=== PATIENT | female | born 2000 | race Caucasian/White ===

== ENCOUNTER 2023-05-08 10:00 | Outpatient (OUT) | payer OTHER, SELFPAY ==
--- NOTE | 2023-05-08 10:03 | US_ITS ---
[address] [address] Patient Name: ISAI KELLEY MRN: [id number] date: 2000 Sex: F Assigned Patient Location: US Current Patient Location: US Accession/Order Number: [id number] Exam Date: 05/08/2023 10:03 Report Date: 05/08/2023 11:58 At the request of: JAZMIN DOMINGUEZ Procedure: US OB transvaginal EXAMINATION: US OB transvaginal HISTORY: MISSED MENSES COMPARISON: No relevant comparison available. FINDINGS: G[place]mez intrauterine gestation Gestational sac: 4.0 cm, 9 weeks 2 days CRL: 1.73 cm, 8 weeks 1 day Yolk sac: 4.6 mm Heart rate: 170 beats minute Cervix: Closed, 3.5 cm The uterus is normal, retroverted, retroflexed The ovaries are normal. Right corpus luteal cyst Clinical age: 8 weeks 3 days Clinical ARRON: 12/15/2023 Ultrasound age: 8 weeks 1 day Ultrasound ARRON: 12/17/2023 US/US OB transvaginal IMPRESSION: G[place] intrauterine gestation measuring 8 weeks 1 day Electronically authenticated by: JAKE SANTIZO Date: 05/08/2023 11:58
== END 2023-05-08 10:01 | disposition home or self-care (01) ==
LOC: US 10:01
PROVIDERS: Visit Provider Obstetrics & Gynecology
DX: Z34.91 Encounter for supervision of normal pregnancy, unspecified, first trimester (principal); Z3A.08 8 weeks gestation of pregnancy; N92.6 Irregular menstruation, unspecified
CPT/HCPCS: 76817

== ENCOUNTER 2023-05-15 10:15 | Outpatient (OUT) | payer OTHER, SELFPAY ==
--- OUTSIDE RECORDS SUMMARY | 2023-05-15 10:22 | XMS_ITS | CCD ---
Author Name Unknown Address [address] [place] [address] Organization [facility] Care Team Providers Care Hand Molder And Caster Name Role Phone Rolando Knight Unavailable DO Rolando Knight Primary Care Provider MD José Miguel Espinal Attending Provider [phone] TEZ, AHMAD F Primary Care Physician Rolando Knight Admitting Unavailable Rolando Knight Attending Unavailable Rolando Knight Primary Care Unavailable Tez, Ahmad Admitting Unavailable Tez, Ahmad Attending Unavailable Rolando Knight Primary Care Unavailable DO Rolando Knight Primary Care Provider DO Rolando Knight Attending Provider [phone] TEZ, AHMAD F Admitting Unavailable TEZ, AHMAD F Attending Unavailable TEZ, AHMAD F Referring Unavailable Tere DUNN Attending Unavailable Maninder Wagner Attending Unavailable TEZ, AHMAD F Admitting Unavailable TEZ, AHMAD F Attending Unavailable TEZ, AHMAD F Referring Unavailable Allergies Allergy Classification Reported Allergen(s) Allergy Type Date of Onset Reaction(s) Facility (16 sources) Escitalopram Drug Allergy drowsiness [facility] neoSaej Other (16 sources) wheat, soy, dairy Propensity to adverse reactions migraines seedtag Other (1 source) Unable to obtain; Translations: [Unable to obtain] Propensity to adverse reactions (disorder) [facility] Medications Current Medications Medication Drug Class(es) Dates Sig (Normalized) Sig (Original) 24 hr buPROPion hydrochloride 300 mg extended release oral tablet (3 sources) Aminoketone Start: 12-18-2020 take 1 tablet by mouth every twenty-four hours buPROPion HCl ER (XL) 300 MG 1 tablet in the morning Orally Once a day for 30 days Dec, Active Gildagia 0.4-35 MG-MCG (11 sources) take 1 tablet by mouth once daily Gildagia 0.4-35 MG-MCG 1 tablet Orally Once a day control Active Hydrocortisone (3 sources) Corticosteroid Start: 05-28-2018 Hydrocortisone Acetate 2.5 % 1 application to affected area Externally Twice a day prn May, Active omeprazole 20 mg delayed release oral capsule (3 sources) Proton Pump Inhibitor Start: 03-08-2020 take 1 capsule by mouth once daily Omeprazole 20 MG 1 capsule 30 minutes before morning meal Orally Once a day prn Mar, Active venlafaxine 75 mg oral tablet (15 sources) Serotonin and Norepinephrine Reuptake Inhibitor Start: 03-04-2021 Venlafaxine HCl 75 MG 1.5 Orally Once a day for 90 days Mar, Active Start: 03-04-2021 take 1 tablet by karol th every twenty-four hours Venlafaxine HCl 75 MG 1 tablet with food Orally Once a day for 90 days Mar, Active Start: 03-04-2021 take 2 tablets by mo uth every twenty-four hours Venlafaxine HCl 37.5 MG 2 tablet with food Orally Once a day for 90 days Mar, Active Start: 03-04-2021 take 1 tablet by karol th every twenty-four hours Venlafaxine HCl 37.5 MG 1 tablet with food Orally Once a day Mar, Active Problems Active Problems Problem Classification Problem Date Documented Da te Episodic/Chronic Anxiety disorders (20 sources) Anxiety; Translations: [Anxiety disorder, unspecified] Onset: 01-29-2021 Resolved: 09-19-2021 Chronic Deficiency and other anemia (16 sources) Iron deficiency anemia; Translations: [Iron deficiency anemia, unspecified] Episodic Other upper respiratory disease (3 sources) Seasonal allergic rhinitis; Translations: [Other seasonal allergic rhinitis] Chronic Other upper respiratory infections (3 sources) Sinusitis; Translations: [Chronic sinusitis, unspecified] Chronic Thyroid disorders (20 sources) Goiter; 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 Unclassified (1 source) Encounter for general adult medical examination without abnormal findings; Translations: [Encounter for general adult medical examination without abnormal findings] Onset: 03-19-2023 Unclassified (1 source) Nontoxic goiter, unspecified; Translations: [Nontoxic goiter, unspecified] Onset: 12-04-2022 Past or Other Problems Problem Classification Problem Date Documented Da te Episodic/Chronic Abdominal pain (3 sources) Abdominal pain; Translations: [Unspecified abdominal pain] Episodic Allergic reactions (3 sources) Inflammatory dermatosis; Translations: [Dermatitis, unspecified] Episodic Nausea and vomiting (3 sources) Nausea and vomiting; Translations: [Nausea with vomiting, unspecified] Episodic Other gastrointestinal disorders (3 sources) Diarrhea; Translations: [Diarrhea, unspecified] Episodic Results Test Name Value Interpretation Reference Range Facility Alanine aminotransferase [En zymatic activity/volume] in Serum or PlasmaOrdered By: Rolando Knight on 03-19-2023 ALT [Catalytic activity/Vol] 24 U/L 7-52 [facility] Albumin [Mass/volume] in Ser um or Plasma by Bromocresol green (BCG) dye binding methoOrdered By: Rolando Knight on 03-19-2023 Albumin BCG dye [Mass/Vol] 4.8 g/dL 3.5-5.7 [facility] Alkaline phosphatase [Enzyma tic activity/volume] in Serum or PlasmaOrdered By: Rolando Knight on 03-19-2023 ALP [Catalytic activity/Vol] 88 U/L 34-104 [facility] Aspartate aminotransferase [ Enzymatic activity/volume] in Serum or PlasmaOrdered By: Rolando Knight on 03-19-2023 AST [Catalytic activity/Vol] 25 U/L 13-39 [facility] Basophils Auto (Bld) [#/Vol] Ordered By: Rolando Knight on 03-19-2023 Basophils (Bld) [#/Vol] 0.1 10*3/uL 0.0-0.2 [facility] Basophils/100 WBC Auto (Bld) Ordered By: Rolando Knight on 03-19-2023 Basophils/100 WBC (Bld) 0.8 % . [facility] Bilirubin.total [Mass/volume ] in Serum or PlasmaOrdered By: Rolando Knight on 03-19-2023 Bilirubin [Mass/Vol] 1.0 mg/dL 0.3-1.0 [facility] Calcium [Mass/volume] in Ser um or PlasmaOrdered By: Rolando Knight on 03-19-2023 Calcium [Mass/Vol] 9.7 mg/dL 8.6-10.3 [facility] Carbon dioxide, total [Moles /volume] in Serum or PlasmaOrdered By: Rolando Knight on 03-19-2023 CO2 [Moles/Vol] 29.0 mmol/L 21.0-31.0 [facility] Chloride [Moles/volume] in S krystal or PlasmaOrdered By: Rolando Knight on 03-19-2023 Chloride [Moles/Vol] 102 mmol/L 98-107 [facility] Cholesterol [Mass/volume] in Serum or PlasmaOrdered By: Rolando Knight on 03-19-2023 Cholesterol [Mass/Vol] 209 mg/dL 140-200 [facility] Comment on above: Chol less than 200 m g/dl low riskChol 201-239 mg/dl borderline riskChol 240 mg/dl and greater high risk Cholesterol in LDL Calc [Mas s/Vol]Ordered By: Rolando Knight on 03-19-2023 Cholesterol in LDL [Mass/Vol] 106 mg/dL 0-100 [facility] Comment on above: LDL ATP III CLASSIFI CATIONLDL less than 100 mg/dL OptimalLDL 100-129 mg/dL Near or above optimalLDL 130-159 mg/dL Borderline highLDL 160-189 mg/dL HighLDL greater than 189 mg/dL Very high Cholesterol in VLDL Calc [Ma ss/Vol]Ordered By: Rolando Knight on 03-19-2023 Cholesterol in VLDL [Mass/Vol] 15 mg/dL [facility] Complete Blood Count Auto Di ffon 03-19-2023 Basophils (Bld) [#/Vol] 0.1 10*3/uL Normal 0.0-0.2 [facility] Comment on above: Order Comment: Reaso n for Exam Wellness examination Result Comment: PERF ORMED BY: [place] [address] PATHOLOGIST KILN PLACER MAGALIS JUAN M.D. Performed By: #### C BC, LIPID, CMP, TSH3 #### [address] Basophils/100 WBC (Bld) 0.8 % Normal . [facility] Comment on above: Order Comment: Reaso n for Exam Wellness examination Performed By: #### C BC, LIPID, CMP, TSH3 #### [address] Eosinophils (Bld) [#/Vol] 0.2 10*3/uL Normal 0.0-0.45 [facility] Comment on above: Order Comment: Reaso n for Exam Wellness examination Performed By: #### C BC, LIPID, CMP, TSH3 #### [address] Eosinophils/100 WBC (Bld) 2.2 % Normal . [facility] Comment on above: Order Comment: Reaso n for Exam Wellness examination Performed By: #### C BC, LIPID, CMP, TSH3 #### [address] Erythrocyte distribution width (RBC) [Ratio] 12.6 % Normal 11.9-15.3 [facility] Comment on above: Order Comment: Reaso n for Exam Wellness examination Performed By: #### C BC, LIPID, CMP, TSH3 #### [address] Hematocrit (Bld) [Volume fraction] 39.8 % Normal 34.0-46.4 [facility] Comment on above: Order Comment: Reaso n for Exam Wellness examination Performed By: #### C BC, LIPID, CMP, TSH3 #### [address] Hemoglobin (Bld) [Mass/Vol] 13.3 g/dL Normal 11.8-15.4 [facility] Comment on above: Order Comment: Reaso n for Exam Wellness examination Performed By: #### C BC, LIPID, CMP, TSH3 #### [address] Lymphocytes (Bld) [#/Vol] 2.2 10*3/uL Normal 1.00-4.8 [facility] Comment on above: Order Comment: Reaso n for Exam Wellness examination Performed By: #### C BC, LIPID, CMP, TSH3 #### [address] Lymphocytes/100 WBC (Bld) 31.1 % Normal . [facility] Comment on above: Order Comment: Reaso n for Exam Wellness examination Performed By: #### C BC, LIPID, CMP, TSH3 #### [address] MCH (RBC) [Entitic mass] 33.3 pg Normal 24.7-34.3 [facility] Comment on above: Order Comment: Reaso n for Exam Wellness examination Performed By: #### C BC, LIPID, CMP, TSH3 #### [address] MCV (RBC) [Entitic vol] 99.5 fL Normal 80-100 [facility] Comment on above: Order Comment: Reaso n for Exam Wellness examination Performed By: #### C BC, LIPID, CMP, TSH3 #### [address] Mean Corpuscular HGB Conc 33.4 g/dL Normal 32.0-35.0 [facility] Comment on above: Order Comment: Reaso n for Exam Wellness examination Performed By: #### C BC, LIPID, CMP, TSH3 #### [place] [address] [place] Monocytes (Bld) [#/Vol] 0.6 10*3/uL Normal 0.0-0.8 [facility] Comment on above: Order Comment: Reaso n for Exam Wellness examination Performed By: #### C BC, LIPID, CMP, TSH3 #### [place] [address] [place] Monocytes/100 WBC (Bld) 8.2 % Normal . [facility] Comment on above: Order Comment: Reaso n for Exam Wellness examination Performed By: #### C BC, LIPID, CMP, TSH3 #### [facility] [address] [place] [address] [place] Neutrophils (Bld) [#/Vol] 4.1 10*3/uL Normal 1.8-7.7 [facility] Comment on above: Order Comment: Reaso n for Exam Wellness examination Performed By: #### C BC, LIPID, CMP, TSH3 #### [address] Neutrophils/100 WBC (Bld) 57.7 % Normal . [facility] Comment on above: Order Comment: Reaso n for Exam Wellness examination Performed By: #### C BC, LIPID, CMP, TSH3 #### [address] NRBC% 0.1 /100{WBC} Normal 0-0.5 [facility] Comment on above: Order Comment: Reaso n for Exam Wellness examination Performed By: #### C BC, LIPID, CMP, TSH3 #### [address] Platelet mean volume (Bld) [Entitic vol] 9.0 fL Normal 6.3-10.7 [facility] Comment on above: Order Comment: Reaso n for Exam Wellness examination Performed By: #### C BC, LIPID, CMP, TSH3 #### [place] [address] [place] Platelets (Bld) [#/Vol] 294 10*3/uL Normal 150-450 [facility] Comment on above: Order Comment: Reaso n for Exam Wellness examination Performed By: #### C BC, LIPID, CMP, TSH3 #### [place] [address] [place] RBC (Bld) [#/Vol] 4.00 10*6/uL Normal 3.60-5.00 [facility] Comment on above: Order Comment: Reaso n for Exam Wellness examination Performed By: #### C BC, LIPID, CMP, TSH3 #### [facility] [address] WBC (Bld) [#/Vol] 7.2 10*3/uL Normal 3.8-11.6 [facility] Comment on above: Order Comment: Reaso n for Exam Wellness examination Performed By: #### C BC, LIPID, CMP, TSH3 #### [facility] [address] Comprehensive Metabolic Pane [place] 03-19-2023 Albumin [Mass/Vol] 4.8 g/dL Normal 3.5-5.7 [facility] Comment on above: Order Comment: Reaso n for Exam Wellness examination Performed By: #### C BC, LIPID, CMP, TSH3 #### [address] Albumin/Globulin [Mass ratio] 1.5 {ratio} Normal [facility] Comment on above: Order Comment: Reaso n for Exam Wellness examination Performed By: #### C BC, LIPID, CMP, TSH3 #### [address] ALP [Catalytic activity/Vol] 88 U/L Normal 34-104 [facility] Comment on above: Order Comment: Reaso n for Exam Wellness examination Performed By: #### C BC, LIPID, CMP, TSH3 #### [address] ALT [Catalytic activity/Vol] 24 U/L Normal 7-52 [facility] Comment on above: Order Comment: Reaso n for Exam Wellness examination Performed By: #### C BC, LIPID, CMP, TSH3 #### [facility] [address] [place] [address] Anion gap [Moles/Vol] 10.1 mmol/L Normal 6.0-15.0 [facility] Comment on above: Order Comment: Reaso n for Exam Wellness examination Performed By: #### C BC, LIPID, CMP, TSH3 #### [facility] [address] [place] [address] AST [Catalytic activity/Vol] 25 U/L Normal 13-39 [facility] Comment on above: Order Comment: Reaso n for Exam Wellness examination Performed By: #### C BC, LIPID, CMP, TSH3 #### [facility] [address] Bilirubin [Mass/Vol] 1.0 mg/dL Normal 0.3-1.0 [facility] Comment on above: Order Comment: Reaso n for Exam Wellness examination Performed By: #### C BC, LIPID, CMP, TSH3 #### [facility] [address] [place] [address] Calcium [Mass/Vol] 9.7 mg/dL Normal 8.6-10.3 [facility] Comment on above: Order Comment: Reaso n for Exam Wellness examination Performed By: #### C BC, LIPID, CMP, TSH3 #### [facility] [address] [place] [address] Chloride [Moles/Vol] 102 mmol/L Normal 98-107 [facility] Comment on above: Order Comment: Reaso n for Exam Wellness examination Performed By: #### C BC, LIPID, CMP, TSH3 #### [facility] [address] [place] [address] [place] CO2 [Moles/Vol] 29.0 mmol/L Normal 21.0-31.0 [facility] Comment on above: Order Comment: Reaso n for Exam Wellness examination Performed By: #### C BC, LIPID, CMP, TSH3 #### [facility] [address] [place] [address] [place] Creatinine [Mass/Vol] 0.70 mg/dL Normal 0.60-1.20 [facility] Comment on above: Order Comment: Reaso n for Exam Wellness examination Performed By: #### C BC, LIPID, CMP, TSH3 #### [facility] [address] [place] [address] [place] GFR/1.73 sq M.predicted MDRD (S/P/Bld) [Vol rate/Area] mL/min/{1.73_m2} Normal [facility] Comment on above: Order Comment: Reaso n for Exam Wellness examination Performed By: #### C BC, LIPID, CMP, TSH3 #### [facility] [address] Globulin (S) [Mass/Vol] 3.1 g/dL Normal F [facility] Comment on above: Order Comment: Reaso n for Exam Wellness examination Performed By: #### C BC, LIPID, CMP, TSH3 #### [address] Glucose [Mass/Vol] 101 mg/dL High 70-100 [facility] Comment on above: Order Comment: Reaso n for Exam Wellness examination Result Comment: [facility] Glucose Reference Range is dependent on time and content of last meal. Glucose of more than 200 mg/dL in a nonstressed, ambulatory subject supports the diagnosis of Diabetes Mellitus. ADA recommended reference range Performed By: #### C BC, LIPID, CMP, TSH3 #### [address] Potassium [Moles/Vol] 4.1 mmol/L Normal 3.5-5.1 [facility] Comment on above: Order Comment: Reaso n for Exam Wellness examination Performed By: #### C BC, LIPID, CMP, TSH3 #### [address] Protein [Mass/Vol] 7.9 g/dL Normal 6.4-8.9 [facility] Comment on above: Order Comment: Reaso n for Exam Wellness examination Performed By: #### C BC, LIPID, CMP, TSH3 #### [address] Sodium [Moles/Vol] 137 mmol/L Normal 136-145 [facility] Comment on above: Order Comment: Reaso n for Exam Wellness examination Performed By: #### C BC, LIPID, CMP, TSH3 #### [address] Urea nitrogen [Mass/Vol] 17 mg/dL Normal 7-25 [facility] Comment on above: Order Comment: Reaso n for Exam Wellness examination Performed By: #### C BC, LIPID, CMP, TSH3 #### [facility] [address] Creatinine [Mass/volume] in Serum or PlasmaOrdered By: Rolando Knight on 03-19-2023 Creatinine [Mass/Vol] 0.70 mg/dL 0.60-1.20 [facility] Eosinophils Auto (Bld) [#/Vo l]Ordered By: Rolando Knight on 03-19-2023 Eosinophils (Bld) [#/Vol] 0.2 10*3/uL 0.0-0.45 [facility] Eosinophils/100 WBC Auto (Bl d)Ordered By: Rolando Knight on 03-19-2023 Eosinophils/100 WBC (Bld) 2.2 % . [facility] Erythrocyte distribution wid th Auto (RBC) [Ratio]Ordered By: Rolando Knight on 03-19-2023 Erythrocyte distribution width (RBC) [Ratio] 12.6 % 11.9-15.3 [facility] Globulin Calc (S) [Mass/Vol] Ordered By: Rolando Knight on 03-19-2023 Globulin (S) [Mass/Vol] 3.1 g/dL [facility] Glucose [Mass/volume] in Ser um or PlasmaOrdered By: Rolando Knight on 03-19-2023 Glucose [Mass/Vol] 101 mg/dL 70-100 [facility] Comment on above: ADA recommended refe rence rangeRandom Glucose Reference Range is dependent on time and content of last meal. Glucose of more than 200 mg/dL in a nonstressed, ambulatory subject supports the diagnosis of Diabetes Mellitus. Hematocrit Auto (Bld) [Volum e fraction]Ordered By: Rolando Knight on 03-19-2023 Hematocrit (Bld) [Volume fraction] 39.8 % 34.0-46.4 [facility] Hemoglobin [Mass/volume] in BloodOrdered By: Rolando Knight on 03-19-2023 Hemoglobin (Bld) [Mass/Vol] 13.3 g/dL 11.8-15.4 [facility] Leukocytes [#/volume] correc ross for nucleated erythrocytes in Blood by Automated counOrdered By: Rolando Knight on 03-19-2023 WBC corrected for nucl RBC Auto (Bld) [#/Vol] 7.2 10*3/uL 3.8-11.6 [facility] Lipid Panelon 03-19-2023 Cholesterol [Mass/Vol] 209 mg/dL High 140-200 [facility] Comment on above: Order Comment: Reaso n for Exam Wellness examination Result Comment: Chol less than 200 mg/dl low risk Chol 201-239 mg/dl borderline risk Chol 240 mg/dl and greater high risk Performed By: #### C BC, LIPID, CMP, TSH3 #### [facility] [address] Cholesterol in HDL [Mass/Vol] 87 mg/dL Normal 23-92 [facility] Comment on above: Order Comment: Reaso n for Exam Wellness examination Result Comment: HDL CHOL ATP-III CLASSIFICATION Cardiovascular Risk HDL > or equal to 60 mg/dL LOW HDL < 40 mg/dL HIGH Performed By: #### C BC, LIPID, CMP, TSH3 #### [facility] [address] Cholesterol.total/Choles terol in HDL [Mass ratio] 2.4 {ratio} Normal <5.0 [facility] Comment on above: Order Comment: Reaso n for Exam Wellness examination Performed By: #### C BC, LIPID, CMP, TSH3 #### [facility] [address] [place] [id number] [facility] LDL Cholesterol,Calculated 106 mg/dL High 0-100 [facility] Comment on above: Order Comment: Reaso n for Exam Wellness examination Result Comment: LDL ATP III CLASSIFICATION LDL less than 100 mg/dL Optimal LDL 100-129 mg/dL Near or above optimal LDL 130-159 mg/dL Borderline high LDL 160-189 mg/dL High LDL greater than 189 mg/dL Very high Performed By: #### C BC, LIPID, CMP, TSH3 #### [facility] [address] [place] [address] [place] Triglyceride w/Reflex 78 mg/dL Normal 0-149 [facility] Comment on above: Order Comment: Reaso n for Exam Wellness examination Result Comment: TRIG ATP III CLASSIFICATION TRIG less than 150 mg/dL Normal TRIG 150-199 mg/dL Borderline high TRIG 200-500 mg/dL High TRIG greater than 500 mg/dL Very high Standard traceable to the Center for Disease Conrtrol and Prevention (CDC) test method. Performed By: #### C BC, LIPID, CMP, TSH3 #### [facility] [address] VLDL CHOLESTEROL 15 mg/dL Normal [facility] Comment on above: Order Comment: Reaso n for Exam Wellness examination Performed By: #### C BC, LIPID, CMP, TSH3 #### [facility] [address] Lymphocytes Auto (Bld) [#/Vo l]Ordered By: Rolando Knight on 03-19-2023 Lymphocytes (Bld) [#/Vol] 2.2 10*3/uL 1.00-4.8 [facility] Lymphocytes/100 WBC Auto (Bl d)Ordered By: Rolando Knight on 03-19-2023 Lymphocytes/100 WBC (Bld) 31.1 % . [facility] MCH Auto (RBC) [Entitic mass ]Ordered By: Rolando Knight on 03-19-2023 MCH (RBC) [Entitic mass] 33.3 pg 24.7-34.3 [facility] MCHC Auto (RBC) [Mass/Vol]Or dered By: Rolando Knight on 03-19-2023 MCHC (RBC) [Mass/Vol] 33.4 g/dL 32.0-35.0 [facility] MCV Auto (RBC) [Entitic vol] Ordered By: Rolando Knight on 03-19-2023 MCV (RBC) [Entitic vol] 99.5 fL 80-100 [facility] Monocytes Auto (Bld) [#/Vol] Ordered By: Rolando Knight on 03-19-2023 Monocytes (Bld) [#/Vol] 0.6 10*3/uL 0.0-0.8 [facility] Monocytes/100 WBC Auto (Bld) Ordered By: Rolando Knight on 03-19-2023 Monocytes/100 WBC (Bld) 8.2 % . [facility] Neutrophils Auto (Bld) [#/Vo l]Ordered By: Rolando Knight on 03-19-2023 Neutrophils (Bld) [#/Vol] 4.1 10*3/uL 1.8-7.7 [facility] Neutrophils/100 WBC Auto (Bl d)Ordered By: Rolando Knight on 03-19-2023 Neutrophils/100 WBC (Bld) 57.7 % . [facility] No Panel InformationOrdered By: Rolando Knight on 03-19-2023 Estimated GFR (CKD-EPI) > 60.0 mL/Min [facility] Creatinine Clearance (Chem N/A [facility] Nucleated erythrocytes [Pres ence] in Blood by Automated countOrdered By: Rolando Knight on 03-19-2023 Nucleated RBC Auto Ql (Bld) 0.1 /100{WBC} 0-0.5 [facility] Platelet mean volume Auto (B ld) [Entitic vol]Ordered By: Rolando Knight on 03-19-2023 Platelet mean volume (Bld) [Entitic vol] 9.0 fL 6.3-10.7 [facility] Platelets Auto (Bld) [#/Vol] Ordered By: Rolando Knight on 03-19-2023 Platelets (Bld) [#/Vol] 294 10*3/uL 150-450 [facility] Potassium [Moles/volume] in Serum or PlasmaOrdered By: Rolando Knight on 03-19-2023 Potassium [Moles/Vol] 4.1 mmol/L 3.5-5.1 [facility] Protein [Mass/volume] in Ser um or PlasmaOrdered By: Rolando Knight on 03-19-2023 Protein [Mass/Vol] 7.9 g/dL 6.4-8.9 [facility] RBC Auto (Bld) [#/Vol]Ordere d By: Rolando Knight on 03-19-2023 RBC (Bld) [#/Vol] 4.00 10*6/uL 3.60-5.00 [facility] Serum or plasma albumin/glob ulin mass ratioOrdered By: Rolando Knight on 03-19-2023 Albumin/Globulin [Mass ratio] 1.5 {ratio} [facility] Serum or plasma anion gap de terminationOrdered By: Rolando Knight on 03-19-2023 Anion gap [Moles/Vol] 10.1 mmol/L 6.0-15.0 [facility] Serum or plasma high density lipoprotein (HDL) cholesterol measurementOrdered By: Rolando Knight on 03-19-2023 Cholesterol in HDL [Mass/Vol] 87 mg/dL 23-92 [facility] Comment on above: HDL CHOL ATP-III CLA SSIFICATION Cardiovascular RiskHDL > or equal to 60 mg/dL LOWHDL < 40 mg/dL HIGH Serum or plasma total choles terol/high density lipoprotein (HDL) cholesterol mass ratOrdered By: Rolando Knight on 03-19-2023 Cholesterol.total/Choles terol in HDL [Mass ratio] 2.4 {ratio} <5.0 [facility] Sodium [Moles/volume] in Ser um or PlasmaOrdered By: Rolando Knight on 03-19-2023 Sodium [Moles/Vol] 137 mmol/L 136-145 [facility] Thyroid Stimulating Hormoneo n 03-19-2023 TSH Qn 1.27 m[IU]/L Normal 0.45-5.33 [facility] Comment on above: Order Comment: Reaso n for Exam Wellness examination Result Comment: PERF ORMED BY: [place] [address] PATHOLOGIST KILN PLACER MAGALIS JUAN M.D. Performed By: #### C BC, LIPID, CMP, TSH3 #### [address] Thyrotropin [Units/volume] i n Serum or PlasmaOrdered By: Rolando Knight on 03-19-2023 TSH Qn 1.27 m[IU]/L 0.45-5.33 [facility] Triglyceride [Mass/volume] i n Serum or PlasmaOrdered By: Rolando Knight on 03-19-2023 Triglyceride [Mass/Vol] 78 mg/dL 0-149 [facility] Comment on above: TRIG ATP III CLASSIF ICATIONTRIG less than 150 mg/dL NormalTRIG 150-199 mg/dL Borderline highTRIG 200-500 mg/dL High TRIG greater than 500 mg/dL Very highStandard traceable to the Center for Disease Conrtrol and Prevention (CDC) test method. Urea nitrogen [Mass/volume] in Serum or PlasmaOrdered By: Rolando Knight on 03-19-2023 Urea nitrogen [Mass/Vol] 17 mg/dL 11-25 [facility] WBC Auto (Bld) [#/Vol]Ordere d By: Rolando Knight on 03-19-2023 WBC (Bld) [#/Vol] 7.2 10*3/uL 3.8-11.6 [facility] Consent for Treatmenton 12-04 Consent for Treatment [id number] 0CD:127 Normal [facility] RAD - Consent to Procedureon 01-01-2023 RAD - Consent to Procedure [id number] 00CD:127 Normal [facility] US FNA w/ Guidance, first le sionon 01-01-2023 US FNA w/ Guidance, first lesion Exam Date/Time: 01/01/2023 13:47 EDT Reason for Exam: E04.9 E04.2 Report IMPRESSION: ULTRASOUND-GUIDED RIGHT THYROID LOBE NODULE BIOPSY. EXAM: US FNA w/ Guidance, first lesion DATE: 01/01/2023 CLINICAL HISTORY: E04.9 E04.2 COMPARISON: Thyroid ultrasound 12/10/2022. PROCEDURE: Informed consent was obtained. Sterile technique, ultrasound guidance, and local lidocaine anesthesia and used in obtaining 4 separate 25-gauge fine-needle aspiration samples from an approximately 1.9 cm hypoechoic TR 4 nodule within the inferomedial aspect of the mid right thyroid lobe. The samples were given directly to the pathology staff. The patient tolerated the procedure without evidence of an immediate complication and was discharged in stable condition with instructions. Ordering Provider: JOSÉ MIGUEL ESPINAL FINAL REPORT Dictated: 01/01/2023 1:53 pm Mikhail Mancera MD Signed (Electronic Signature): 01/01/2023 1:53 pm Signed by: Mikhail Mancera MD Transcribed by: LAUREN Technologist: SHIRA Normal [facility] Physician Orderon 12-26-2022 Physician Order [id number] 0CD:[address] 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 FOLLOW-UP ULTRASOUND IN ONE YEAR IS SUGGESTED. TR 4, Moderately Suspicious--FNA if greater than or equal to 1.5 cm and follow-up at 1, 3 and 5 years, if greater than or equal to 1 cm. EXAM: US Thyroid DATE: 12/10/2022 CLINICAL HISTORY: E04.9 E04.1. COMPARISON: None available. TECHNIQUE: Ultrasound of the thyroid was performed with a regional survey. Guidance on fine-needle aspiration (FNA) and follow-up for nodules using TI-RADS, based on 2017 ACR white paper. FINDINGS: The thyroid is mild to moderately enlarged, with increased vascularity. Numerous well-defined ovoid solid hypoechoic solid nodules without echogenic foci (TR 4 are noted throughout both thyroid lobes). The largest within the anteromedial right middle lobe measures approximately 1.9 x 1.3 x 0.7 cm. On the left, the largest measures approximately 1.4 x 0.7 x 0.4 cm. The right lobe measures 6.2 cm x 2.1 cm x 1.7 cm with a volume of 11.9 cm3. The left lobe measures 6.1 cm x 1.8 cm x 1.3 cm with a volume of 7.6 cm3. The isthmus measures 0.4 cm. Report Ordering Provider: JOSÉ MIGUEL ESPINAL FINAL REPORT Dictated: 12/12/2022 12:00 pm Mikhail Mancera MD Signed (Electronic Signature): 12/12/2022 12:00 pm Signed by: Mikhail Mancera MD Transcribed by: LAUREN Technologist: HW [facility] Consent for Treatmenton Consent for Treatment [id number] 0CD:[address] [facility] Physician Orderon 12-05-2022 Physician Order [id number] 0CD:127 Normal [facility] Free T4 (Free Thyroxine)on 0 12-04-2022 Free T4 [Mass/Vol] 0.62 ng/dL Normal 0.61-1.12 [facility] Comment on above: Performed By: #### T 3F, T4F, TSH3 #### [facility] [address] [id number] [place] Thyroid Stimulating Hormoneo n 12-04-2022 TSH Qn 2.04 m[IU]/L Normal 0.45-5.33 [facility] Comment on above: Result Comment: PERF ORMED BY: [place] [address] PATHOLOGIST KILN PLACER MAGALIS JUAN M.D. Performed By: #### T 3F, T4F, TSH3 #### [address] [place] [id number] [place] Thyrotropin [Units/volume] i n Serum or PlasmaOrdered By: José Miguel Espinal on 12-04-2022 TSH Qn 2.04 m[IU]/L 0.45-5.33 [facility] Thyroxine (T4) free [Mass/vo lume] in Serum or PlasmaOrdered By: José Miguel Espinal on 12-04-2022 Free T4 [Mass/Vol] 0.62 ng/dL 0.61-1.12 [facility] Triiodothyronine (T3) Freeon 12-04-2022 Triiodothyronine (T3) Free 4.17 pg/mL High 2.50-3.90 [facility] Comment on above: Result Comment: PERF ORMED BY: [place] [address] PATHOLOGIST KILN PLACER MAGALIS JUAN M.D. Performed By: #### T 3F, T4F, TSH3 #### [address] [facility] Triiodothyronine (T3) Free [ Mass/volume] in Serum or PlasmaOrdered By: José Miguel Espinal on 12-04-2022 Free T3 [Mass/Vol] 4.17 pg/mL 2.50-3.90 [facility] Vital Signs Date Time Vital Sign Value Performing Clinician Facility 12-23-2022 14:15-0400 Body height 162.56 cm Rolando Knight Other [facility] Other 12-23-2022 14:15-0400 Body mass index (BMI) [Ratio] 25.16 kg/m2 Rolando Knight Other [facility] Other 12-23-2022 14:15-0400 Body weight 66.5 kg Rolando Knight Other [facility] Other 12-23-2022 14:15-0400 Diastolic blood pressure 74 mm[Hg] Rolando Knight Other [facility] Other 12-23-2022 14:15-0400 Respiratory rate 16 /min Rolando Knight Other [facility] Other 12-23-2022 14:15-0400 SaO2% (BldA) [Mass fraction] 98 % Rolando Knight Other [facility] Other 12-23-2022 14:15-0400 Systolic blood pressure 118 mm[Hg] Rolando Knight Other [facility] Other 06-10-2022 16:45-0500 Body height 162.56 cm Rolando Knight Other [facility] Other 06-10-2022 16:45-0500 Body mass index (BMI) [Ratio] 25.06 kg/m2 Rolando Knight Other [facility] Other 06-10-2022 16:45-0500 Body weight 66.23 kg Rolandoviolet Knight Other [facility] Other 06-10-2022 16:45-0500 Diastolic blood pressure 70 mm[Hg] Rolando Antonia Other [facility] Other 06-10-2022 16:45-0500 Respiratory rate 16 /min Rolando Knight Other [facility] Other 06-10-2022 16:45-0500 SaO2% (BldA) [Mass fraction] 99 % Rolando Knight Other [facility] Other 06-10-2022 16:45-0500 Systolic blood pressure 112 mm[Hg] Rolando Knight Other [facility] Other 01-28-2022 13:30-0400 Body height 162.56 cm Rolando Knight Other [facility] Other 01-28-2022 13:30-0400 Body mass index (BMI) [Ratio] 25.06 kg/m2 Rolando Knight Other [facility] Other 01-28-2022 13:30-0400 Body weight 66.23 kg Rolando Antonia Other [facility] Other 01-28-2022 13:30-0400 Diastolic blood pressure 66 mm[Hg] Rolando Knight Other [facility] Other 01-28-2022 13:30-0400 Respiratory rate 16 /min Rolando Knight Other [facility] Other 01-28-2022 13:30-0400 SaO2% (BldA) [Mass fraction] 99 % Rolando Knight Other [facility] Other 01-28-2022 13:30-0400 Systolic blood pressure 114 mm[Hg] Rolando Knight Other [facility] Other 09-19-2021 13:45-0400 Body height 162.56 cm Rolando Knight Other [facility] Other 09-19-2021 13:45-0400 Body mass index (BMI) [Ratio] 24.03 kg/m2 Rolando Knight Other [facility] Other 09-19-2021 13:45-0400 Body weight 63.5 kg Rolando Knight Other [facility] Other 09-19-2021 13:45-0400 Diastolic blood pressure 70 mm[Hg] Rolando Knight Other [facility] Other 09-19-2021 13:45-0400 Respiratory rate 18 /min Rolando Knight Other [facility] Other 09-19-2021 13:45-0400 SaO2% (BldA) [Mass fraction] 98 % Rolando Knight Other [facility] Other 09-19-2021 13:45-0400 Systolic blood pressure 106 mm[Hg] Rolando Knight Other [facility] Other 06-24-2021 11:45-0500 Body height 162.56 cm Rolando Knight Other [facility] Other 06-24-2021 11:45-0500 Body mass index (BMI) [Ratio] 24.54 kg/m2 Rolando Antonia Other [facility] Other 06-24-2021 11:45-0500 Body weight 64.86 kg Rolando Knight Other [facility] Other 06-24-2021 11:45-0500 Diastolic blood pressure 74 mm[Hg] Rolando Knight Other [facility] Other 06-24-2021 11:45-0500 Respiratory rate 16 /min Rolando Knight Other [facility] Other 06-24-2021 11:45-0500 SaO2% (BldA) [Mass fraction] 99 % Rolando Knight Other [facility] Other 06-24-2021 11:45-0500 Systolic blood pressure 110 mm[Hg] Rolando Knight Other [facility] Other 04-22-2021 11:45-0500 Body height 162.56 cm Rolando Knight Other [facility] Other 04-22-2021 11:45-0500 Body mass index (BMI) [Ratio] 23.41 kg/m2 Rolando Knight Other [facility] Other 04-22-2021 11:45-0500 Body weight 61.87 kg Rolando Knight Other [facility] Other 04-22-2021 11:45-0500 Diastolic blood pressure 70 mm[Hg] Rolando Knight Other [facility] Other 04-22-2021 11:45-0500 Respiratory rate 16 /min Rolandoviolet Pompajen Other [facility] Other 04-22-2021 11:45-0500 SaO2% (BldA) [Mass fraction] 99 % Rolando Peñajen Other [facility] Other 04-22-2021 11:45-0500 Systolic blood pressure 112 mm[Hg] Rolando Knight Other [facility] Other 01-29-2021 13:30-0400 Body height 162.56 cm Rolando Pompajen Other [facility] Other 01-29-2021 13:30-0400 Body mass index (BMI) [Ratio] 23.17 kg/m2 Rolandoviolet Pompajen Other [facility] Other 01-29-2021 13:30-0400 Body weight 61.24 kg Rolando Knight Other [facility] Other 01-29-2021 13:30-0400 Diastolic blood pressure 65 mm[Hg] Rolando Knight Other [facility] Other 01-29-2021 13:30-0400 Respiratory rate 16 /min Rolando Knight Other [facility] Other 01-29-2021 13:30-0400 SaO2% (BldA) [Mass fraction] 99 % Rolando Knight Other [facility] Other 01-29-2021 13:30-0400 Systolic blood pressure 110 mm[Hg] Rolando Knight Other [facility] Other Encounters Encounter Date Encounter Type Care Provider Facility Start: 05-08-2023 End: 05-08-2023 ambulatory Not Available Start: 04-09-2023 End: 04-09-2023 ambulatory Rolando Pompajen Other [facility] Other Start: 04-09-2023 Telephone encounter Rolando Knight [facility] Start: 04-01-2023 End: 04-01-2023 ambulatory Rolando Knight Other [facility] Other Start: 04-01-2023 Telephone encounter Rolando Knight [facility] Start: 03-31-2023 End: 03-31-2023 ambulatory Rolando Knight Other [facility] Other Start: 03-31-2023 Telephone encounter Rolando Knight [facility] Start: 03-23-2023 ambulatory Tere Andria DUNN Facility:[facility] Start: 03-19-2023 End: 03-19-2023 ambulatory Rolando Knight Facility:[facility] Start: 03-19-2023 End: 03-19-2023 ambulatory DO Rolando Peñajen Work Phone: [facility] Work Phone: Start: 03-19-2023 End: 03-19-2023 Patient encounter procedure DO Rolandoviolet Knight Work Phone: [facility] [place] Work Phone: Start: 02-02-2023 End: 05-04-2023 ambulatory Maninder Wagner [place] [place]: 01-26-2023 End: 01-26-2023 ambulatory Rolando Knight Other [facility] Other Start: 01-26-2023 Telephone encounter Rolando Knight [facility] Start: 01-01-2023 End: 01-02-2023 ambulatory AHMAD F TEZ [place] [place] Start: 01-01-2023 End: 01-01-2023 Patient encounter procedure AHMAD F TEZ [facility] Start: 12-23-2022 End: 12-23-2022 ambulatory Rolando Knight Other [facility] Other Start: 12-23-2022 Office outpatient vi sit 15 minutes Rolando Knight [facility] Start: 12-10-2022 End: 12-11-2022 ambulatory AHMAD F TEZ [place] [place] Start: 12-10-2022 End: 12-10-2022 Patient encounter procedure PAULINATXD Kristy ESPINAL [facility] Start: 12-04-2022 End: 12-04-2022 ambulatory Ahmad Tez Facility:[facility] Start: 12-04-2022 End: 12-04-2022 ambulatory DO Rolando Knight Work Phone: [facility] Work Phone: Start: 12-04-2022 End: 12-04-2022 Patient encounter procedure DO Rolando Knight Work Phone: [facility] Work Phone: Start: 11-11-2022 End: 11-11-2022 ambulatory Rolando Knight Other [facility] Other Start: 11-11-2022 Telephone encounter Rolando Knight [facility] Start: 06-10-2022 End: 06-10-2022 ambulatory Rolando Knight Other [facility] Other Start: 06-10-2022 Office outpatient vi sit 15 minutes Rolando Pompas [facility] Start: 05-12-2022 End: 05-12-2022 ambulatory Rolando Pompas Other [facility] Other Start: 05-12-2022 Telephone encounter Rolando Pompas [facility] Start: 02-12-2022 End: 02-12-2022 ambulatory Rolando Pompas Other [facility] Other Start: 02-12-2022 Telephone encounter Rolando Pompas [facility] Start: 01-28-2022 End: 01-28-2022 ambulatory Rolando Pompas Other [facility] Other Start: 01-28-2022 Office outpatient vi sit 15 minutes Rolando Pompas [facility] Start: 09-19-2021 End: 09-19-2021 ambulatory Rolando Pompas Other [facility] Other Start: 09-19-2021 Office outpatient vi sit 15 minutes Rolando Pompas [facility] Start: 06-24-2021 End: 06-24-2021 ambulatory Rolando Pompas Other [facility] Other Start: 06-24-2021 Office outpatient vi sit 15 minutes Rolando Pompas [facility] Start: 04-22-2021 End: 04-22-2021 ambulatory Rolando Pompas Other [facility] Other Start: 04-22-2021 Office outpatient vi sit 15 minutes Rolandoviolet Pompas [facility] Start: 03-25-2021 End: 03-25-2021 ambulatory Rolando Pompas Other [facility] Other Start: 03-25-2021 Telephone encounter Rolando Pompas [facility] Start: 03-04-2021 Telephone encounter Rolando Knight [facility] Start: 01-29-2021 Office outpatient vi sit 15 minutes Rolando Knight [facility] Immunizations Immunization Date Immunization Notes Care Provider Cristian moralez 05-07-2022 COVID-19 Vaccine Moderna - Documentation Purposes Only Rolando Knight Other [facility] Other 02-28-2022 influenza, seasonal, injectable Rolando Knight Other [facility] Other 04-04-2021 COVID-19 Vaccine Moderna - Documentation Purposes Only Rolando Knight Other [facility] Other Payers Date Payer Category Payer Unknown [id number] 2022 [facility] [id number] 2022 Self-pay [id number] 1999 Unknown [id number] 1999 Unknown [id number] 1999 Unknown [id number] 1999 Unknown [id number] 1999 Unknown [id number] 1999 Unknown [id number] Unknown [id number] Unknown [id number] Unknown HCAP/HFA/FAP Active [id number] Unknown [id number] Unknown [id number] Social History Date Type Detail Facility Unknown if ever smoked [facility] Other Sex Assigned At [facility] Start: 2000 Sex Assigned At Female F [facility] Tobacco smoking status No Smokin g Status Entered [facility] Clinical Notes 01-29-2021 to 04-01-2023 Note Date & Type Note Facility 04-01-2023 Evaluation note Encounter Date Diagnosis Assessment Notes Mar, Anxiety (ICD-10 - F41.9) [facility] Other 11-28-2023 Evaluation note* Encounter Date Diagnosis Assessment Notes Treatment Notes Treatment Clinical Notes Mar, Anxiety (ICD-10 - F41.9) [facility] Other 09-25-2023 Evaluation note* Encounter Date Diagnosis Assessment Notes Treatment Notes Treatment Clinical Notes Jan, Anxiety (ICD-10 - F41.9) [facility] Other 08-22-2023 Evaluation note* Encounter Date Diagnosis Assessment Notes Treatment Notes Treatment Clinical Notes Dec, Anxiety (ICD-10 - F41.9) Discussion was had that patient may benefit increasing the dose as opposed to trying a completely different medication. I advised she try a full tablet in the morning and add a 1/2 tablet in the evening and see how she does. Patient agreed and does not need a refill at this time. Dec, Thyroid nodule (ICD-10 - E04.1) Patient was strongly encouraged to follow with Dr. Espinal as scheduled. [facility] Other 07-11-2023 Evaluation note* Encounter Date Diagnosis Assessment Notes Treatment Notes Treatment Clinical Notes Nov, Anxiety (ICD-10 - F41.9) [facility] Other 02-07-2023 Evaluation note* Encounter Date Diagnosis Assessment Notes Treatment Notes Treatment Clinical Notes Jun, Anxiety (ICD-10 - F41.9) Patient appears to be doing well on the above medication increase. Therefore I advised the patient we can change the prescription to 75mg daily. She is agreeable. We will conitnue to monitor. [facility] Other 01-09-2023 Evaluation note* Encounter Date Diagnosis Assessment Notes Treatment Notes Treatment Clinical Notes May, Anxiety (ICD-10 - F41.9) [facility] Other 10-12-2022 Evaluation note* Encounter Date Diagnosis Assessment Notes Treatment Notes Treatment Clinical Notes Feb, Anxiety (ICD-10 - F41.9) [facility] Other 09-27-2022 Evaluation note* Encounter Date Diagnosis Assessment Notes Treatment Notes Treatment Clinical Notes Jan, Anxiety (ICD-10 - F41.9) I recommend we increase the above medications to twice a day, suggested the patient try taking one in the morning and one in the evening. If she is unable to do that, then I suggested she just take two in the morning. Patient is agreeable. I advised her she will not notice much difference until about two weeks into the increace. Patient is to call when she is due for a refill. [facility] Other 05-19-2022 Evaluation note* Encounter Date Diagnosis Assessment Notes Treatment Notes Treatment Clinical Notes September, Anxiety (ICD-10 - F41.9) Anxiety is well controlled on current medication regimen with no reported negative side effects , therefore patient is to continue with the above medication and we will continue to monitor. [facility] Other 02-21-2022 Evaluation note* Encounter Date Diagnosis Assessment Notes Treatment Notes Treatment Clinical Notes Jun, Anxiety (ICD-10 - F41.9) Patient does voice that her anxiety has improved since starting the Venlafaxine. Patient denies any side effects. I did advise patient that if her anxiety worsens, we can increase the dose. [facility] Other [id number] Evaluation note* Encounter Date Diagnosis Assessment Notes Treatment Notes Treatment Clinical Notes Apr, Anxiety (ICD-10 - F41.9) I am in agreement the patient continue Venlafaxine as directed as this appears to have been more effective then Bupropion. Discussion was had we can increase the Venlafaxine in the future if needed. [facility] Other [id number] Evaluation note* Encounter Date Diagnosis Assessment Notes Treatment Notes Treatment Clinical Notes Jan, Anxiety (ICD-10 - F41.9) I suggested for patient to try taking 300mg of the above medication to see if this gives the patient a longer releif from anxiety. Patient is agreeable. Refill provided. We will re-evaulate again in six weeks. [facility] Other Evaluation + Plan note No data available for this section [facility] Other Evaluation noteNo assessment information available [facility] Work Phone: [facility] general Narrative - Reported* Type Description Date Medical History enlarged thryoid Surgical History T&A 2003 Hospitalization History see surgical history [facility] Other Hospital Discharge instructions No data available for this section [facility] data available for this section [facility] Chief Complaint and Reason for Visit Chief Complaint E04.9 E04.1 R94.6 Advance Directives No Advanced Directives Records Found Advance Directive Response Recorded Date/ Time Advance Directives No March 02, 2017 3:11pm Advance Directive Response Recorded Date/ Time Advance Directives No March 02, 2017 2:11pm Summary Purpose Family History No Family History Records FoundNo Family History Records FoundNo Family History Records Found Additional Source Comments REASON FOR VISIT (unrecogniz ed section and content) 6 WEEK CHECKClinicalno showf ollow up anxiety2 m f/u anxietyfollow up anxiety3 month Follow up anxietyRefillsRefillsR/S 3 month follow up anxietyRefillsmedication check-venlafaxineRefillsrefillrefillClinical Care Teams (unrecognized sec tion and content) Team Status: Active Member Role Status Dates Rolando Knight DO Primary Care Provider Active Team Status: Inactive Member Role Status Dates Rolando Knight DO Primary Care Provider Active José Miguel Espinal MD Attending Provider Active Team Status: Inactive Member Role Status Dates Rolando Knight DO Primary Care Provider, Attending Fahad craig Active Goals (unrecognized section and content) Goals may be documented in a n alternate section INFORMATION SOURCE (unrecogn ized section and content) DATE CREATED AUTHOR 03/21/2023 [facility] DATE CREATED AUTHOR AUTHOR'S ORGANIZ ATION 05/03/2023 [facility] DATE CREATED AUTHOR AUTHOR'S ORGANIZ ATION 05/09/2023 [facility] EPIC FOR RECORDS PERTAINING TO PATIENTS WHO ARE OR HAVE BEEN ENROLLED IN A CHEMICAL DEPENDENCY/SUBSTANCEABUSE PROGRAM, SOME INFORMATION MAY BE OMITTED. This clinical summary was aggregated from multiple sources. Caution should be exercised in using it in the provision of clinical care. This summary normalizes information from multiple sources, and as a consequence, information in this document may materially change the coding, format and clinical context of patient data. In addition, data may be omitted in some cases. CLINICAL DECISIONS SHOULD BE BASED ON THE PRIMARY CLINICAL RECORDS. [employer] provides no warranty or guarantee of the accuracy or completeness of information in this document.
[2023-05-15 10:48] LABS: Basophils Percent Auto 0.2 % (0.2-2.0); Eosinophils Absolute Auto 0.1 10^3/uL (0.0-0.7); Eosinophils Percent Auto 1.1 % (0.9-7.0); Hematocrit 36.7 % (36.0-48.0); Hemoglobin 12.5 g/dL (12.0-16.0); Immature Granulocytes Abs Auto 0.02 10^3/uL (0.00-0.03); Immature Granulocytes Pct Auto 0.2 % (0.0-0.5); Lymphocytes Absolute Auto 2.2 10^3/uL (1.2-3.8); Lymphocytes Percent Auto 25.4 % (20.5-60.0); Mean Corpuscular HGB Conc 34.1 g/dL (29.9-35.2); Mean Corpuscular Hemoglobin 32.9 pg (26.7-34.0); Mean Corpuscular Volume 96.6 fL (81.0-99.0); Mean Platelet Volume 10.1 fL (9.5-13.5); Monocytes Absolute Auto 0.5 10^3/uL (0.3-0.8); Monocytes Percent Auto 5.6 % (1.7-12.0); Neutrophils Absolute Auto 5.8 10^3/uL (1.4-6.5); Neutrophils Percent Auto 67.5 % (43.0-75.0); Platelet Count 282 10^3/uL (150-450); Red Cell Distribution Width 11.4 % (11.0-15.0); White Blood Count 8.5 10^3/uL (4.0-11.0)
[2023-05-15 11:35] LABS: Thyroid Stimulating Hormone 1.447 uIU/mL (0.358-3.740)
[2023-05-15 12:49] LABS: Estimated Average Glucose 105 mg/dL; Glycohemoglobin A1C 5.3 % (4.5-6.2)
[2023-05-16 06:13] LABS: Rubella Antibodies, IgG 1.17 index (Immune >0.99)
[2023-05-16 10:49] LABS: HBsAg Screen Negative (Negative); HCV Ab Non Reactive (Non Reactive); HIV Ab/p24 Ag Screen Non Reactive (Non Reactive)
[2023-05-16 11:04] LABS: Rapid Plasma Reagin, Quant Non Reactive titer (NonRea<1:1)
== END 2023-05-15 10:16 | disposition home or self-care (01) ==
LOC: LAB 10:18
PROVIDERS: Visit Provider Obstetrics & Gynecology
DX: N92.6 Irregular menstruation, unspecified (principal)
CPT/HCPCS: 36415; 83036; 84443; 85025; 86592; 86762; 86803; 86850; 86900; 86901; 87086; 87340; 87389